=== PATIENT | female | born 1960 | race Caucasian/White ===

== ENCOUNTER → 2016-12-10 | Outpatient (CLI) | payer MEDICAID ==
[~2016-12-10] MED LIST: CYCL1TAB29 PO; LAMI250T PO; LIPI10TA PO; PAXI30TA7 PO; TRAM50TA PO; TRAZ100T4 PO; TRAZ50TA12 PO
[2016-12-10 15:23] LABS: HEMATOCRIT 40.9 % (35.0-46.0); MEAN CELL VOLUME 81.4 FL (80.0-100.0); PLATELET COUNT 251 TH/MM3 (150-450); RED BLOOD COUNT 5.02 MIL/MM3 (4.00-5.30); RED CELL DISTRIBUTION WIDTH 13.8 % (11.6-17.2); REVIEW FLAG FINAL; WHITE BLOOD COUNT 6.9 TH/MM3 (4.0-11.0)
[2016-12-10 15:28] LABS: INTERNATIONAL NORMALIZED RATIO 0.9 RATIO; PROTHROMBIN TIME - PATIENT 9.9 SEC (9.8-11.6)
[2016-12-10 15:47] LABS: ALT (GPT) 21 U/L (10-53); ANION GAP 7 MEQ/L (5-15); AST (GOT) 21 U/L (15-37); BICARBONATE 26.8 MEQ/L (21.0-32.0); BLOOD UREA NITROGEN 10 MG/DL (7-18); CHLORIDE 108 MEQ/L (98-107); GLOMERULAR FILTRATION RATE 72 ML/MIN (>89); GLUCOSE,FASTING 91 MG/DL (74-99); POTASSIUM 4.1 MEQ/L (3.5-5.1); SODIUM (NA) 142 MEQ/L (136-145)
[2016-12-10 15:50] LABS: ALKALINE PHOSPHATASE 102 U/L (45-117); TOTAL BILIRUBIN ADULT 0.2 MG/DL (0.2-1.0)
--- NOTE | 2016-12-10 16:19 | RADRPT ---
EXAM DATE/TIME: 12/10/2016 15:33 [place] COMPARISON: No previous studies available for comparison. INDICATIONS : Evaluate for pneumonia, pneumothorax, or communicable disesase. Pre op arthroplasty fifth toe, left f oot. MEDICAL HISTORY : None. SURGICAL HISTORY : None. ENCOUNTER: Initial ACUITY: 1 day PAIN SCORE: 0/10 LOCATION: Bilateral chest FINDINGS: The lungs are clear without infiltrate, nodule, or mass. There is no appreciable pleural effusion fo r technique. Heart and mediastinum are unremarkable. CONCLUSION: No acute cardiopulmonary disease. Valarie Jenkins MD on December 10, 2016 at 16:18 Board Certified Radiologist. This report was verified electronically.
--- NOTE | 2016-12-11 09:52 | EKG ---
Date Performed: 12/10/2016 Time Performed: 15:00:16 PTAGE: 56 years EKG: Sinus rhythm NORMAL ECG NO PREVIOUS TRACING DOCTOR: Warren Grant Interpretating Date/Time 12/11/2016 09:48:26
== END ==
LOC: CPRE 14:33
PROVIDERS: ATTEND Podiatrist Primary Podiatric Medicine
DX: Z01.810 Encounter for preprocedural cardiovascular examination (principal); Z01.811 Encounter for preprocedural respiratory examination; Z01.812 Encounter for preprocedural laboratory examination; M20.42 Other hammer toe(s) (acquired), left foot
CPT/HCPCS: 36415; 71020; 80053; 85027; 85610; 93005

== ENCOUNTER → 2016-12-14 | Day surgery (SDC) | payer MEDICAID ==
[~2016-12-14] VITALS: Ht 167.6 cm; Wt 102.2 kg
[~2016-12-14] MED LIST changes: +BUPIVACAINE HCL PF 0.5% 30 ML VIAL ONE; +CHLORHEXIDINE GLUCONATE 2 % 1 PACK (2 CLOTHS) TOPICAL PRN; +DICLOFENAC SODIUM 37.5 MG/ML VIAL IV PUSH ONE; +DO NOT ADM ANY ANTICOAGULANT DRUGS PRN; +FAMOTIDINE 20 MG/2 ML VIAL ONE; +IBUPROFEN 400 MG TAB PO PRN; +INSULIN HUMAN REGULAR 1,000 UNITS/10 ML VIAL SQ PRN; +LACTATED RINGER'S 1000 ML IV PRN; -LAMI250T PO; +LIDOCAINE HCL 1% 50 ML VIAL ONE; -LIPI10TA PO; +METOPROLOL TARTRATE 25 MG TAB PO PRN; +MIDAZOLAM HCL 2 MG/2 ML VIAL ONE; +NALOXONE HCL 0.4 MG/ML AMP IV PRN; +ONDANSETRON HCL 4 MG/2 ML VIAL IV PUSH ONE; +POVIDONE IODINE 5% (ANTISEPSIS KIT) 4 APPLICATIONS EACH NARE PRN; +PROPOFOL 200 MG/20 ML AMP IV ONE; +Post-op Orders (for Pharmacy) MISC XX ONE; +SODIUM CHLORID 0.9% 500 ML IV PRN; +SODIUM CHLORIDE 0.9% FLUSH 10 ML FLUSH IV FLUSH PRN; +SODIUM CHLORIDE 0.9% FLUSH 10 ML FLUSH IV FLUSH SCH; -TRAZ100T4 PO; +ceFAZolin 2 GM PREMIX 50 ML IV SCH; +ceFAZolin 2 GM PREMIX 50 ML ONE; +traMADol HCL 50 MG TAB PO PRN
[2016-12-14 07:37] VITALS: BP 115/73; PULSE 76; RESP 16; TEMP 97.9; O2SAT 98
--- NOTE | 2016-12-14 09:53 | PD.OP ---
Operative Report Date of Surgery: Dec 14, 2016 Preoperative Diagnosis: (1) Acquired hammer toe of left foot Fifth toe left foot Postoperative Diagnosis: (1) Acquired hammer toe of left foot Fifth toe left foot Procedure: Derotational arthroplasty fifth toe left foot Anesthesia: General inhalation Surgeon: Boris Barba DPM Sheet Pile Hammer Operator(s): None Operation and Findings: Patient is brought to the operating room placed on the operating table in supine position. Patient was given general relation anesthesia and the left foot was prepped and draped in the usual sterile manner. After the appropriate timeout was performed attention was directed to the fifth toe left foot which was noted to have a varus rotated fifth toe under riding the fourth toe of the left foot. At this time to semi-elliptical incisions made and a teardrop fashion where centered over the head of the proximal phalanx of the fifth toe. The skin incisions were deepened taking care to tie off any superficial bleeding vessels. The resulting skin wedge was removed from the surgical site. The deep head of the proximal phalanx was delivered into the wound and using a bone-cutting forceps this was resected. Closure of the incision site showed the rotation of the fifth toe. The area is flushed with copious amounts of sterile saline. Wound was closed with 3-0 Prolene. The area was anesthetized with 7 cc of 0.5% Marcaine plain. The incision was dressed with Adaptic 4 x 4' s and [place]. Estimated blood loss was less than 10 cc. No pathology specimen was sent. Sponge and instrument count was noted to be correct. Patient tolerated the procedures and anesthesia well and left the OR to PACU in apparent satisfactory condition with all vital signs stable endovascular status intact of the left foot Boris Braba DPM Dec 14, 2016 09:53
== END | disposition home or self-care (01) ==
LOC: HSDC 07:06
PROVIDERS: ATTEND Podiatrist Primary Podiatric Medicine
DX: M20.42 Other hammer toe(s) (acquired), left foot (principal)
CPT/HCPCS: 01480; 28285; J0690; J1130; J2250; J2405; J3010; J7120; L3260